=== PATIENT | male | born 1980 | race Caucasian/White ===

== ENCOUNTER 2016-10-23 14:34 | Inpatient (IN) | payer MEDICARE ==
[~2016-10-23] VITALS: Ht 182.9 cm; Wt 77.2 kg
[2016-10-23 14:40] VITALS: BP 131/80; PULSE 120; RESP 18; O2SAT 96
--- NOTE | 2016-10-23 15:10 | ED.REPORT ---
HPI-Psychiatric Illness Date of Service Oct 23, 2016 ED Provider: Dayne Velazquez DO Pt is a 36 year old male with a history of schizoaffective disorder, anxiety, and hallucinations who presents to the ED complaining of auditory hallucinations. He c/o associated visual hallucinations, paranoia, and anxiety. He denies alcohol and drug use. The pt denies suicidal ideation and homicidal ideation. Pt was previously in [facility] in [place] for auditory and visual hallucinations, but has been experiencing increasing hallucinations due to lack of medication coverage by his insurance company. He was taking 15 mg of Zyprexa 3x a day for 3 weeks. Pt is currently homeless and has been seeing shadows. Pt reports that he "wants to get a clear head to figure out the next step." He moved to [place] from [place] due to a "psychotic breakdown" and to reconnect with family, reporting that he gets impulsive when he experiences similar symptoms with thoughts [place] Nursing Notes Stated Complaint: PSYCHOSIS Chief Complaint: Psychiatric Complaint Nursing Notes Reviewed: Yes Allergies: Uncoded Allergies: SALMON (Allergy, Unknown, 10/23/16) Scheduled Albuterol Sulfate (Ventolin HFA Inhaler) 200 Puff/18 Gm Inhaler 1 PUFF INH Q4 Divalproex ER (Divalproex ER) 500 Mg Tab.er.24h 500 MG PO BID *DAILY DOSING ONLY* Swallowed whole without chewing to avoid local irritation of the mouth and throat. Sertraline HCl (Sertraline) 20 Mg/1 Ml Oral.conc 150 MG PO DAILY Scheduled PRN Fluticasone Propionate (Flovent HFA 110 mcg) 12 Gm Aer.w.adap 1 PUFF IH BID PRN PRN For Shortness of Breath Quetiapine Fumarate (Seroquel) 100 Mg Tablet 100 MG PO BID PRN PRN psychosis Trazodone (Trazodone) 100 Mg Tablet 100 MG PO HS PRN PRN Insomnia General Time Seen by MD: 15:08 Chief Complaint Hallucinations, auditory Hx Obtained From: Patient Arrived By: Walk-in Onset Occurred: Onset unknown Symptom Duration: Since onset Severity: Current: No pain currently Severity: Maximum: No pain Recent Healthcare: No recent doctor visit, No recent hospitalization Similar Sx Previous: Yes Risk-Psychiatric Illness Suicide Risk Stratification Suicide Risk Factors - Adult: : Prior psych admissionNo: Alcohol use RF Statements: Risk factors reviewed Past Medical History Past Medical History Schizoaffective disorder Anxiety Reports: Asthma Past Surgical History Denies Smoking History Unknown if Ever Smoker Social History Alcohol Use: Denies alcohol use Drug Use: Denies drug use Ambulatory Status Independent Review of Systems + Paranoia Psychiatric: Reports: Anxiety, Hallucinations, auditory, Hallucinations, visual , Denies: Homicidal ideation, Suicidal ideation Complete sys rev & neg: except as marked. Physical Exam Initial Vital Signs Vital Signs (First) Date Time Temp Pulse Resp B/P Pulse Ox O2 Delivery O2 Flow Rate FiO2 10/23/16 14:40 36.7 120 18 131/80 96 Room Air Initial VS: Reviewed ENT: Mucous membranes moist, Conjunctiva normal, No scleral icterus Neck: Supple, Full range of motion Respiratory: Breath sounds normal, Clear to auscultation, No respiratory distress Cardiovascular: Regular rate & rhythm, Heart sounds normal, Intact distal pulses Abdomen / GI: Soft, Non-tender Extremities: Vascular intact, Neuro intact Skin: Warm, Dry, No cyanosis General/Constitutional: Awake, Alert, Cooperative He is extremely anxious and tremulous with poor eye contact. Neurologic: Oriented X3, Speech NL Psychiatric: Affect NL, Mood NL, Not suicidal, Not homicidal Interpretation & Diagnostics Lab Results Interpretation Result Diagram: 10/23/16 1615 10/23/16 1615 Test 10/23/16 16:15 10/23/16 17:03 White Blood Count 8.9th/mm3 (3.8-10.1) Red Blood Count 5.12mil/mm3 (4.40-5.80) Hemoglobin 15.3g/dL (13.8-17.2) Hematocrit 45.6% (41.0-50.0) Mean Corpuscular Volume 89.1fL (81-100) Mean Corpuscular Hemoglobin 29.9pg (27.0-35.0) Mean Corpuscular Hemoglobin Concent 33.6% (32.0-37.0) Red Cell Distribution Width 14.4% (12.3-15.4) Platelet Count 311bil/L (150-400) Neutrophils (%) (Auto) 59.8% (40-74) Lymphocytes (%) (Auto) 26.5% (14-46) Monocytes (%) (Auto) 10.3% (4-12) Eosinophils (%) (Auto) 2.5% (0-5) Basophils (%) (Auto) 0.7% (0-3) Sodium Level 143mEq/L (134-144) Potassium Level 4.0mEq/L (3.5-5.2) Chloride Level 103mEq/L (97-108) Carbon Dioxide Level 27mmol/L (18-29) Blood Urea Nitrogen 23mg/dL (6-20) Creatinine 0.91mg/dL (0.76-1.27) Estimat Glomerular Filtration Rate 101mL/min (>59) Glucose Level 89mg/dL (60-99) Calcium Level 9.4mg/dL (8.5-10.1) Total Bilirubin 0.4mg/dL (0.0-1.2) Aspartate Amino Transf (AST/SGOT) 74U/L (0-50) Alanine Aminotransferase (ALT/SGPT) 34U/L (0-44) Alkaline Phosphatase 108U/L (25-150) Total Protein 7.3g/dL (6.4-8.4) Albumin 4.2g/dL (3.4-5.0) Thyroid Stimulating Hormone (TSH) 1.270uIU/mL (0.450-4.500) Hold Ackerman Top Tube Received (Received) Re-Eval/Medical Decision Med Decision/Clinical Course 36-year-old male with a history of schizoaffective disorder presents with visual and auditory hallucinations. He is currently homeless and is having difficulty obtaining his medications due to insurance problems. He has been hospitalized twice in the patient in the past month or so. He denies suicidal or homicidal ideation. He appears very anxious and is unable to manage his psychosis or get medications. Given his unstable medical condition he will be admitted for treatment and evaluation and hopefully some resources to obtain his medications. He was treated with 2 doses of Haldol 5 mg orally in the ER with some mild improvement of his symptoms. Source of Hx: Old records Re-Evaluation/Progress : Time of Eval: 20:23 )( Re-Eval Psychiatric: No suicidal ideation, No homicidal ideation Re-Evaluation/Progress Note: Pt rechecked. Informed pt of plan for admission. Pt understands and agrees with plan for admission. All questions addressed. Consultation : Referral / Consult Name: Khalif Mikeorquidea Long DO Consulted With: Hospitalist Call Returned at: 20:23 Air Brake Man: Will see patient, Agrees with eval, Agrees with plan, Accepts admit Counseled Regarding: Diagnosis, Lab results, Need for admission Discharge & Departure Impression: Primary Impression: Psychosis Psychosis type: schizoaffective disorder Schizoaffective disorder type: other Qualified Code: F25.8 - Other schizoaffective disorders Additional Impressions: Schizoaffective disorder Schizoaffective disorder type: unspecified Qualified Code: F25.9 - Schizoaffective disorder, unspecified Hallucination, visual Auditory hallucinations Disposition: ADMITTED TO HOSPITAL Discharge Condition All VS Reviewed: Yes Condition: Stable Referrals: [facility] Scribe Attestation Portions of this note were transcribed by Shira Elias. I, Dr. Velazquez personally performed the history, physical exam and medical decision-making; I reviewed and confirmed the accuracy of the information in the transcribed note. Signed by: Gianfranco Teran, 10/23/16 and 17:30. copies to: [facility] Dayne Velazquez DO Oct 23, 2016 15:10 Shira Steven Oct 23, 2016 16:01
[2016-10-23 16:27] LABS: BASOPHILS % (AUTO) 0.7 % (0-3); EOSINOPHILS % (AUTO) 2.5 % (0-5); MONOCYTES % (AUTO) 10.3 % (4-12); Mean Corpuscular Hemoglobin 29.9 pg (27.0-35.0); Mean Corpuscular Volume 89.1 fL (81-100); NEUTROPHILS % (AUTO) 59.8 % (40-74); Platelet Count 311 bil/L (150-400)
[2016-10-23 21:40] VITALS: BP 128/77; PULSE 107; RESP 18; O2SAT 98
[2016-10-24 00:32] VITALS: BP 122/80; PULSE 94; RESP 18; O2SAT 98
[2016-10-24] MEDS ORDERED: Magnesium Hydroxide 10 mL Oral Concentration PO PRN (00:40)
[2016-10-24] MEDS ORDERED: Alum-Mag Hydrox-Simeth 30 mL Suspension PO PRN (00:40)
[2016-10-24] MEDS ORDERED: Benzocaine-Menthol Lozenge 2/Pkg PO PRN (00:40)
--- NOTE | 2016-10-24 03:25 | NUR ---
0045 Nursing note: admission 36 year old male admitted voluntarily from [facility] ER. Patient self presented to ED due to worsening paranoid and anxiety. Patient reported he was recently discharged from [facility] about 4 days ago. Patient had been prescribed Zyprexa on discharge,but pharmacy could not fill his prescription due to his insurance coverage. Patient reports he started feeling increasing paranoia that people were going to hurt him. Patient stayed in [place] last 3 days, but got impulsive and just started to walk. Patient walked all the way to the hospital as he did not feel safe and requesting admission as he feels he will become more paranoid if not in hospital. Patient appears distracted on admission, but states feeling less anxious since medications given in ER (Haldol) Patient is cooperative with admission, denies SI, HI AH. Patient endorsed depression, but contracts no harm. Patient agreeable to po Zyprexa ordered on admission, then retired to bed. Addendum: 10/24/16 at 0555 by MAR PEÑALOZA RN 0600: Patient appears to be sleeping on subsequent safety checks during the night.
[2016-10-24] MEDS ORDERED: QUET100T PO (04:05)
[2016-10-24] MEDS ORDERED: DIVA500T14 PO (04:05)
[2016-10-24] MEDS ORDERED: TRAZ-118 PO (04:05)
[2016-10-24] MEDS ORDERED: ALBU18HF INH (04:05)
[2016-10-24] MEDS ORDERED: FLUT12AE8 IH (04:05)
[2016-10-24] MEDS ORDERED: SERT20OR6 PO (04:05)
[2016-10-24] MEDS ORDERED: Albuterol 2.5 mg/3 mL Inhalation Solution NEB SCH (16:00)
[2016-10-24] MEDS ORDERED: Albuterol 2.5 mg/3 mL Inhalation Solution NEB PRN (16:25)
--- NOTE | 2016-10-24 16:38 | HP ---
[address] [address] HISTORY AND PHYSICAL PATIENT: LUIS FELIPE GIRARD : 1980 MR#: [id number] ADMIT: 10/24/2016 JOB ID: [id number] IDENTIFICATION: The patient is a 36-year-old, single white male. He is currently homeless. He has been on SSDI for psychotic symptoms since 2011. He initially left [place] in February 2016, traveling first to [place] and then to [place]. He spent three weeks on the inpatient unit at [facility] before being discharged four days ago and traveling to [place]. REASON FOR ADMISSION: Client walked from [place] to [place] after having increased symptoms of paranoia, auditory hallucinations and visual hallucinations. HISTORY OF PRESENT ILLNESS: I met with the patient for a 60-minute evaluation and reviewed course and records kept by [facility]. Client is presenting for treatment of increased symptoms of psychosis in the forms of paranoia, auditory and visual hallucinations. The voices are telling him that bad things are happening to others because of him. He gives a history of psychotic symptoms starting in 2011 after a significant period of methamphetamine IV. He states that he has symptoms of diana with distractibility, racing thoughts and inability to sleep. He stated he was discharged from [facility] on a combination of Depakote, Zyprexa, and Zoloft. However, when he went to get his Zyprexa prescription they stated that he had already had this filled and he has been off Zyprexa for the past four days. Without the medication, he has not slept for the past two days and is having extreme symptoms recur of paranoia and auditory hallucinations. He states he does well when he is in regular treatment, taking his medications, and has regular housing and social support. He states he does quite poorly if he does anything such as marijuana or alcohol. He states he is not using any other street drugs, although his urine tox was positive for opiates. Client denied suicidal ideation, plan, or intent. He denied previous history of violence or legal incarceration. He states he is isolated from his family and is hoping to re-create himself here in the [place] area. PAST PSYCHIATRIC HISTORY/MEDICATIONS: 1. Depakote ER 500 b.i.d. 2. Zoloft 150 daily. 3. Zyprexa 15 mg b.i.d., per patient report. ALLERGIES: CATS. ILLNESSES: Asthma. OTHER MEDICATIONS: Client also takes in medicines: 1. Albuterol metered-dose inhaler q.4 h. p.r.n. 2. Flovent metered-dose inhaler b.i.d. FAMILY MEDICAL HISTORY: Mother of unknown causes in 2009. He has a father who is still alive and a younger sister. PAST PSYCHIATRIC HISTORY: Client reports being diagnosed with schizophrenia and bipolar in 2011. He states he has been hospitalized 8-10 times in [place]. He states he has been in the [facility] for 28 days. He was recently at [facility] for three weeks before being discharged. He has been out for the past four days. PSYCHOSOCIAL HISTORY: Client was born in [place] and moved to [place] when he was 9 years old, living in [facility]. He dropped out of high school in his senior year and has been doing general internal medicine physician. He states he enjoys drawing, writing, and writing stories for recreation. History of trauma: Client denies lethality. Client denies active use of marijuana, alcohol, or meth. He has a history of severe IV meth abuse. Lethality: Client denies suicidal or homicidal ideation. He had one suicide attempt at age 29 where he took pills, hoping to . He blacked out and woke up in the intensive care unit. He could not remember what kind of pills he took. RELATIONSHIP HISTORY: Single. He has one daughter, age 16, who is in . CHEONDOISM: Restorationist. LEGAL HISTORY: Two years ago, he got a driving with suspended license. PHYSICAL EXAM: Well hydrated, well-developed, no acute distress. Physical exam reviewed from ED and essentially normal. Vital signs within normal limits. LABS: CBC normal. Liver, electrolytes, thyroid normal except for BUN and AST elevated. UDS positive for opiates. MENTAL STATUS EXAM: Client neatly dressed, calm, and pleasant. He had poor eye contact. His behavior was somewhat withdrawn and lethargic. His attitude was cooperative and pleasant. Speech normal rate and rhythm. Mood: Dysthymic. Affect: Congruent, flat, restricted. Thought process: Client was able to relate a very coherent history, logical, goal oriented. Thought content: Significant for paranoid thoughts as well as auditory hallucinations. He is hearing voices telling him, "You are the reason bad things are happening to other people." He denied suicidal ideation, plan, or intent. Client alert and oriented to person, place, and date. Immediate short- and long-term memory intact. Attention and concentration mildly impaired. Insight and judgment appropriate. Impulse control: Highly contained. Reality testing markedly impaired. Competence to handle current stressors: Is currently being overwhelmed. IMPRESSION: The patient is a 36-year-old, white male, who is been struggling with symptoms of diana and psychosis since 2011. He has been hospitalized multiple times in [place], as well as 28 days in the [facility] He recently moved here to the [facility] from [place] via [place] approximately four weeks ago. He spent three weeks being stabilized at [facility]. However, after discharge, his insurance would not let him worm picker his Zyprexa script. As a result, he has been wandering for the past four days without medications and has had increased symptoms of diana with no sleep for two days and now has retriggered paranoia and auditory hallucinations. For unclear reasons, urine drug tox is positive for opiates and he had a marked elevation of BUN and AST from his labs. He is currently homeless with very little psychosocial support. DIAGNOSIS: [place] I. 1. Psychosis, unspecified. 2. Rule out substance-induced psychosis. 3. Rule out schizoaffective disorder. [place] II. Defer. [place] III. Asthma. [place] IV. Moderate. [place] V. Current Global Assessment of Functioning equal to 35. PLAN: Recommend client be admitted to our unit and be provided with a high degree of safety through the structure and active adult engagement he will receive here. We will have him participate in one-to-one unit and group activities, focused on improving coping skills and reality-based thinking. We will restart medications, Depakote ER 500 twice a day, Zoloft 150 daily, and restart Zyprexa at 10 mg twice a day. Client is a voluntary patient and anticipate 3-5 day stay. We will recheck BUN and AST in the morning.
[2016-10-24 16:51] VITALS: PULSE 96; RESP 16; O2SAT 93
--- NOTE | 2016-10-24 17:33 | NUR ---
[facility] Day Shift Pt maintained behavioral control throughout the shift. Pt affect appears mostly flat, somewhat brighter when engaged with staff or peers. Pt mostly isolative throughout the shift, spending most of the shift resting or sleeping in his room. Pt is appropriate with staff and peers when active on the shift, but is not social. Pt did not attend group activities throughout the shift. Pt attended all meals and ate approx 100% of all meals.
--- NOTE | 2016-10-24 18:10 | NUR ---
NURS Note [id number] Mood: "I'm just really tired." Endorses depression /10; anxiety, 10/16. Affect: Well-modulated. Behavior: Pt sleeping in room most of shift, up for meals. Thought Content/Process: "I'm hearing voices but they are more muffled than before. I see shadows but they aren't distressing." Endorses AH, VH. Denies SI, HI. PRN/NURS Notes: B 100%, L 100%, D 100%. PRN albuterol NEB administered by RT.
[2016-10-24] MEDS: Fluticasone 100 mCg Inhaler INHALATION SCH (20:35)
[2016-10-24] MEDS: Divalproex (QD) 500 mg ER24 Tablet PO SCH (20:35)
--- NOTE | 2016-10-25 04:49 | NUR ---
nurse prog note: pt. slept well through the night.
[2016-10-25] MEDS: Divalproex (QD) 500 mg ER24 Tablet PO SCH ×2 (08:48→20:57)
[2016-10-25] MEDS: Fluticasone 100 mCg Inhaler INHALATION SCH ×2 (08:48→20:56)
[2016-10-25 11:14] VITALS: BP 113/72; PULSE 82; RESP 16
--- NOTE | 2016-10-25 13:39 | PCM.PNPSY ---
Subjective Date of Service Oct 25, 2016 Subjective I spent 30 minutes both reviewing treatment plan with our clinical team, interviewing the patient and providing supportive/educational psychotherapy. I spent more than 50% of the time counseling the patient. I reviewed the treatment plan with the him and discussed options available including the potential risks, benefits and side effects. Nestor reports a slight improvement in thought organization and mood stability. Staff reports that he has been active and participating well in one-to-one unit and group activities. He slept 10 hours and denies depression or manic symptoms review. He continues to complain of auditory hallucinations and general difficulty with thought organization. He denies medication side effects. He was able to identify his medications and what they were used to treat. Current Medications Current Medications Albuterol 2.5 mg Q4H PRN NEB Last administered on 10/24/16 16:50; Admin Dose 2.5 MG; Start 10/24/16 at 16:25 Divalproex Sodium 500 mg BID PO Last administered on 10/25/16 08:48; Admin Dose 500 MG; Start 10/24/16 at 20:30 Fluticasone Propionate 1 puff BID INHALATION Last administered on 10/25/16 08: 48; Admin Dose 1 PUFF; Start 10/24/16 at 20:30 Haloperidol 5 mg ONCE ONCE PO Last administered on 10/23/16 16:28; Admin Dose 5 MG; Start 10/23/16 at 16:00; Stop 10/23/16 at 16:01; Status DC Haloperidol 5 mg ONCE ONCE PO Last administered on 10/23/16 19:39; Admin Dose 5 MG; Start 10/23/16 at 18:45; Stop 10/23/16 at 18:46; Status DC Olanzapine 10 mg BID PO Last administered on 10/25/16 08:48; Admin Dose 10 MG; Start 10/24/16 at 20:30 Olanzapine 10 mg HS ONCE PO Last administered on 10/24/16 01:01; Admin Dose 10 MG; Start 10/24/16 at 00:40; Stop 10/24/16 at 00:41; Status DC Sertraline HCl 50 mg DAILY PO Last administered on 10/25/16 08:48; Admin Dose 50 MG; Start 10/24/16 at 16:01 Trazodone HCl 100 mg HS PRN PO Last administered on 6/18/17at 20:37; Admin Dose 100 MG; Start 10/24/16 at 15:50 Mental Status Exam Vital Signs Vital Signs Date Time Temp Pulse Resp B/P Pulse Ox O2 Delivery O2 Flow Rate FiO2 10/25/16 11:14 36.8 82 16 113/72 Appearance: Neat/well groomed Attitude: Pleasant, Cooperative Behavior: No unusual behavior Mood: Dysthymic Thought Process/Associations: Logical/Sequential, Goal Directed Speech Production: Normal Speech Rate: Normal Speech Articulation: Normal Thought Content: Appropriate Danger to Self/Suicidal Ideati: None Danger to Others: None Delusions: Paranoid (Endorses) Hallucinations: Auditory (Endorses) Consciousness: Alert Orientation: Person, Place, Date, Situation Memory: Grossly Intact Estimate Intellectual Function: Average Basis for IQ estimate: Awareness current events Attention/Concentration & Cogn: Grossly Intact Cognitive Testing Method: Abstract Reasoning during interview, Proverb interpretation, Serial computations Insight: Good Judgement: Limited Result Diagram: 10/23/16 1615 10/23/16 1615 Mental Health Plan The patient is a 36-year-old, white male, who is been struggling with symptoms of diana and psychosis since 2011. He has been hospitalized multiple times in [place], as well as 28 days in the [facility]. He recently moved here to the [facility] from [place] via [place] approximately four weeks ago. He spent three weeks being stabilized at [facility]. However, after discharge, his insurance would not let him picker feeder his Zyprexa script. As a result, he has been wandering for the past four days without medications and has had increased symptoms of diana with no sleep for two days and now has retriggered paranoia and auditory hallucinations. He is currently homeless with very little psychosocial support. This morning Nestor reported an improvement in thought organization. We problem solved different Psychosocial issues he struggling with an attempted develop a safety and treatment plan for after discharge. If he continues to improve would anticipate discharge in 2-3 days. [place] I. 1. Psychosis, unspecified. 2. Rule out substance-induced psychosis. 3. Rule out schizoaffective disorder. [place] II. Defer. [place] III. Asthma. [place] IV. Moderate. [place] V. Current Global Assessment of Functioning equal to 35. Treatments Patient is being provided with a high degree of safety through our unit structure and active adult engagement provided by our mental health professionals, mental health technicians, psychiatric nurses and myself. We are focusing on developing improved coping skills and identifying stressors that may have led to current episode. We will attempt to: * Integrate into therapeutic groups, milieu and individual therapy. * Maintain in a closely monitored and structured unit * Provide low-stimulation environment * Obtain collateral data to assist in treatment planning * Assess degree of lability of affect and impulse control * Complete safety plan * Decrease frequency of relapse and need for re-hospitalization * Establish a consistent sleep pattern * Medication effective in stabilization of mood and/or thought process * Reduce the risk of imminent harm to self and/or others by providing a safe environment * Tolerates medication without side effects Patient will be on the following psychiatric medications: Depakote ER 500 twice a day Zoloft 150 daily Zyprexa 10 mg twice a day Labs:recheck BUN and AST in a.m. Education: Educate patient about recreational drug use as an etiology Educate about metabolic etiologies related to obesity Patient's legal status Voluntary Anticipated number of hospital days to achieve above goals: 5 Disposition: Homeless correction Jim Moran MD Oct 25, 2016 13:39
--- NOTE | 2016-10-25 14:19 | NUR ---
NURS Note [id number] Mood: "I'm feeling pretty optimistic; but feel a little depressed about being in the hospital again." Denies depression. Endorses mild situational depression and anxiety. Affect: Well-modulated. 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 There were about 11 people at the time. I loved it." Linear, logical. Endorses AH. Denies VH. Denies SI, HI. Behavior: Appropriate and pleasant with peers and staff. Spent much of shift in room, resting, sleeping, and writing. PRN/NURS Notes: Pt denies respiratory distress, wheezing, or chest tightness. Continue to monitor respiratory status, call RT for NEB albuterol treatment as needed for asthma symptoms.
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
--- NOTE | 2016-10-25 16:24 | NUR ---
Acls Nurse/Counselor S:"I'm here for my psychosis." O: Patient did not express any SI or HI, but stated that he hears voices telling him bad things, as well as to hurt others and that everything is his fault. He did not express any visual hallucinations, and rated his depression at a 2 and his anxiety at a 2. A: Patient was cooperative but quiet. He stated he has been hospitalized in [place] and [facility], and stated he was also homeless. He does not have any providers in the area. He secluded himself to his room for most of the day and only came out for meals. He declined group, and has not participated in any other activities. P: Follow care plan and coordinate with outpatient providers.
--- NOTE | 2016-10-25 19:14 | NUR ---
Obs Dayshift Pt is out in the milieu for meals, and the Dog group in the morning. Pt engages very little w/ staff and peers. Quiet, polite, little requests. Pt has good ADL's, Good meals
--- NOTE | 2016-10-25 23:00 | NUR ---
NURSING NOTE [id number] Mood: "starting to feel better" Affect: quiet, polite, cooperative Behavior: pt. mostly isolating to room this shift but does come out periodically and interacts sparingly w/peers. He took a shower. He is med compliant. Thought processes: pt. endorses AH; but reports "they're getting more quiet and I'm mostly able to ignore them now." Denies VH. Reports his anxiety is improving and feels he will be ready to discharge soon. Denies SI.
--- NOTE | 2016-10-26 05:13 | NUR ---
Nursing Shift Combination Building Inspector 11pm to 7am Pt asleep at start of shift and remained asleep for the duration of the night. Pt monitored q 15 minutes for safety location and accountability
[2016-10-26] MEDS: Fluticasone 100 mCg Inhaler INHALATION SCH ×2 (08:29→21:10)
[2016-10-26] MEDS: Divalproex (QD) 500 mg ER24 Tablet PO SCH ×2 (08:29→21:11)
[2016-10-26 12:59] VITALS: BP 119/68; PULSE 97; RESP 16
--- NOTE | 2016-10-26 14:33 | NUR ---
Nursing day note- "I'm feeling pretty good today." Up in dining room for meals, otherwise he has been in his room. Says that he feels rested and his appetite is good. He also said that the "auditory hallucinations", were less and that he recognizes the increase in his heart rate and anxiety level when he has them. He also talked about plans for discharge tomorrow, and feeling optimistic about that.
--- NOTE | 2016-10-26 15:13 | PCM.PNPSY ---
Subjective Date of Service Oct 26, 2016 Subjective I spent 30 minutes both reviewing treatment plan with our clinical team, interviewing the patient and providing supportive/educational psychotherapy. I spent more than 50% of the time counseling the patient. I reviewed the treatment plan with the him and discussed options available including the potential risks, benefits and side effects. Nestor reports a marked improvement in thought organization and mood stability. Staff reports that he has been active and participating well in one-to-one unit and group activities. He slept 9 hours and denies depression or manic symptoms review. He continues to complain of auditory hallucinations and general difficulty with thought organization. He denies medication side effects. He was able to identify his medications and what they were used to treat. Current Medications Current Medications Albuterol 2.5 mg Q4H PRN NEB Last administered on 10/24/16 16:50; Admin Dose 2.5 MG; Start 10/24/16 at 16:25 Divalproex Sodium 500 mg BID PO Last administered on 10/26/16 08:29; Admin Dose 500 MG; Start 10/24/16 at 20:30 Fluticasone Propionate 1 puff BID INHALATION Last administered on 10/26/16 08: 29; Admin Dose 1 PUFF; Start 10/24/16 at 20:30 Olanzapine 10 mg BID PO Last administered on 10/26/16 08:29; Admin Dose 10 MG; Start 10/24/16 at 20:30 Sertraline HCl 50 mg DAILY PO Last administered on 10/26/16 08:30; Admin Dose 50 MG; Start 10/24/16 at 16:01 Trazodone HCl 100 mg HS PRN PO Last administered on 10/25/16 21:32; Admin Dose 100 MG; Start 10/24/16 at 15:50 Mental Status Exam Vital Signs Vital Signs Date Time Temp Pulse Resp B/P Pulse Ox O2 Delivery O2 Flow Rate FiO2 10/26/16 12:59 37.1 97 16 119/68 Appearance: Neat/well groomed Attitude: Pleasant, Cooperative Behavior: No unusual behavior Mood: Euthymic Thought Process/Associations: Logical/Sequential, Goal Directed Speech Production: Normal Speech Rate: Normal Speech Articulation: Normal Thought Content: Appropriate Danger to Self/Suicidal Ideati: None Danger to Others: None Delusions: Paranoid (Endorses) Hallucinations: Auditory (Endorses) Consciousness: Alert Orientation: Person, Place, Date, Situation Memory: Grossly Intact Estimate Intellectual Function: Average Basis for IQ estimate: Awareness current events Attention/Concentration & Cogn: Grossly Intact Cognitive Testing Method: Abstract Reasoning during interview, Proverb interpretation, Serial computations Insight: Good Judgement: Good Result Diagram: 10/23/16 1615 10/23/16 1615 Mental Health Plan The patient is a 36-year-old, white male, who is been struggling with symptoms of diana and psychosis since 2011. He has been hospitalized multiple times in [place], as well as 28 days in the [facility]. He recently moved here to the [facility] from [place] via [place] approximately four weeks ago. He spent three weeks being stabilized at [facility]. However, after discharge, his insurance would not let him cotton picker his Zyprexa script. As a result, he has been wandering for the past four days without medications and has had increased symptoms of diana with no sleep for two days and now has retriggered paranoia and auditory hallucinations. He is currently homeless with very little psychosocial support. This morning Nestor reported an improvement in thought organization. We problem solved different Psychosocial issues he struggling with an attempted develop a safety and treatment plan for after discharge. Nestor has had a significant recovery. If he continues to have normalized thought Process and mood We will discharge in the morning. [place] I. 1. Psychosis, unspecified. 2. Rule out substance-induced psychosis. 3. Rule out schizoaffective disorder. [place] II. Defer. [place] III. Asthma. [place] IV. Moderate. [place] V. Current Global Assessment of Functioning equal to 40. Treatments Patient is being provided with a high degree of safety through our unit structure and active adult engagement provided by our mental health professionals, mental health technicians, psychiatric nurses and myself. We are focusing on developing improved coping skills and identifying stressors that may have led to current episode. We will attempt to: * Integrate into therapeutic groups, milieu and individual therapy. * Maintain in a closely monitored and structured unit * Provide low-stimulation environment * Obtain collateral data to assist in treatment planning * Assess degree of lability of affect and impulse control * Complete safety plan * Decrease frequency of relapse and need for re-hospitalization * Establish a consistent sleep pattern * Medication effective in stabilization of mood and/or thought process * Reduce the risk of imminent harm to self and/or others by providing a safe environment * Tolerates medication without side effects Patient will be on the following psychiatric medications: Depakote ER 500 twice a day Zoloft 150 daily Zyprexa 10 mg twice a day Education: Educate patient about recreational drug use as an etiology Educate about metabolic etiologies related to obesity Patient's legal status Voluntary Anticipated number of additional hospital days to achieve above goals: 1 Disposition: Homeless jail Jim Moran MD Oct 26, 2016 15:12
--- NOTE | 2016-10-26 15:27 | NUR ---
Obs Dayshift Pt remains in his room during most free times. Pt is out in the milieu during meals, snacks and does attend groups. Pt is calm, co-operative, polite, minimal engaging w/ peers. Pt worked on and completed his safety plan and early warning sings in prep for D/C this week. Pt has better eye contact, calm. Pt continues w/ a sad affect but slightly better than the past few days. Good ADL's, Good meals
--- NOTE | 2016-10-26 16:00 | NUR ---
Physician Office Specialist/Counselor S:" I'm doing fine." O: Patient did not report any SI or HI, no depression or anxiety but does report auditory hallucinations. A: Patient has been secluded to his room and has only come out during meal times. He speaks very quietly and has a flat affect. He is calm but very sad. Patient is scheduled to be discharged tomorrow, 10/27/16 P:Follow care plan and coordinate with outpatient providers.
[2016-10-26] MEDS: LORazepam 1 mg Tablet PO PRN ×2 (16:49→21:15)
--- NOTE | 2016-10-26 22:00 | NUR ---
NURSING NOTE [id number] Mood: "a little anxious" Affect: anxious, polite, quiet Behavior: pt. continues to mostly isolate to his room, in bed, but did come out to ask questions of staff re: his medications and discharge information. Pt. is med compliant. Thought processes: pt. endorses more anxiety this evening than yesterday. Reports the voices "are a bit stronger" than earlier today. Declined offers of PRN Seroquel as he stated it has not helped him previously. Requested PRN Ativan 1 mg @ 16:49 and at HS as he explained that when his anxiety is reduced his voices become less intense. Rated anxiety level 7/10. Denied SI. Requested PRN Trazodone 100 mg @ 22:30.
--- NOTE | 2016-10-27 06:56 | NUR ---
Sleep Adequate sleep through the night with no noted distress or awakening per protocol checks. Total sleep 7+ hours.
[2016-10-27] MEDS: Divalproex (QD) 500 mg ER24 Tablet PO SCH (08:01)
[2016-10-27] MEDS: Fluticasone 100 mCg Inhaler INHALATION SCH (08:02)
[2016-10-27] MEDS: LORazepam 1 mg Tablet PO PRN ×2 (08:24→12:59)
[2016-10-27] MEDS ORDERED: RISP3TAB19 PO (13:19)
[2016-10-27] MEDS ORDERED: ALBU18HF INH (13:20)
[2016-10-27] MEDS ORDERED: DIVA500T14 PO (13:21)
[2016-10-27] MEDS ORDERED: SERT50TA9 PO (13:21)
--- NOTE | 2016-10-27 13:22 | PCM.DIMED ---
Discharge Instructions Date of Service Oct 27, 2016 Dates of Hospitalization Oct 24, 2016 at 00:18 Discharge Diagnosis Discharge Diagnosis [place] I. 1. Psychosis, unspecified. 2. Rule out substance-induced psychosis. 3. Rule out schizoaffective disorder. [place] II. Defer. [place] III. Asthma. [place] IV. Moderate. [place] V. Current Global Assessment of Functioning equal to 50 Diet Discharge Diet: No restrictions Activity Discharge Activity: No restrictions Patient Instructions Patient Instructions I Strongly encouraged patient to follow up with outpatient care: 1-Recommended patient takes medication as prescribed and not alter this unless under the direct care of a provider. 2-Recommend client refrain from recreational drugs and alcohol while taking psychiatric medications. 3-Recommend client start a 12 step program to deal with issues of addiction. 4-Recommend patient attempt to find a therapist or group to deal with impulse control and interpersonal relationship conflicts Follow-up plan Patient to follow-up with [facility] for an intake in [place]. Client given bus ticket to the [facility] in [place]. Follow-up with PCP in: 2 weeks Jim Moran MD Oct 27, 2016 13:22
[2016-10-27 13:31] VITALS: BP 122/78; PULSE 113; RESP 16
--- NOTE | 2016-10-27 13:35 | NUR ---
Senior Water Resources Engineer/Counselor S:"I'd like to go to [facility]." O: Patient did not report any SI or HI. States he is still dealing with the AH but no VH. He rated his anxiety at a 0, and depression was "low." A: Patient was discharged at 1330. He will be transported via taxi to [facility], and will from there take a bus to [place]. He will stay at [facility] in [place] and will receive follow up mental health services through [facility]. He was provided with a bus ticket, directions and discharge instructions. Patient expressed a desire to move to [facility] before discharge. P: Follow discharge instructions and use safety plan. Attend 's appts.
--- NOTE | 2016-10-27 14:05 | DIS ---
[address] [address] DISCHARGE SUMMARY PATIENT: LUIS FELIPE GIRARD : 1980 MR#: [id number] ADMIT: 10/24/2016 JOB ID: [id number] DIS: 10/27/2016 IDENTIFICATION: The patient is a 36-year-old, single male currently homeless and has been on SSDI for psychotic symptoms since 2011. He left from [place] to the [facility] in February 2016. He was on inpatient unit at [facility] for three weeks, four days prior to admission. REASON FOR ADMISSION: Client presented to the emergency department with paranoia, auditory hallucinations and visual hallucinations. SUMMARY OF PRESENT ILLNESS: Patient is a 36-year-old, white male, who has been struggling with symptoms of diana and psychosis since 2011. He has been hospitalized multiple times in [place], as well as 28 days in the [facility] there. He was recently in [facility] for three weeks prior to being discharged four days prior to admission here. After discharge from [facility], he could not slat pickler his Zyprexa and was off meds for four days. Began to have increased symptoms of diana and psychosis and came to the emergency department seeking stabilization and treatment. HOSPITAL COURSE: Client was admitted to our unit and was provided with a high degree of safety through the structure and active adult engagement he received here. We had him participate in one-to-one unit and group activities focused on improving reality based thinking and coming up with a treatment plan and safety plan for after discharge. He participated well in all the above activities. He was restarted on medications, Depakote, Zoloft Zyprexa. He had no side effects to these medications and had gradual and steady improvement over the three days he was here. Today he is requesting discharge and has a reasonable safety plan in place. MENTAL STATUS: Neatly dressed, calm, pleasant, good eye contact. Attitude was cooperative. Mood euthymic. Affect congruent. Normal intensity. Thought process, client is able to relate a coherent history. No signs of psychosis. Thought content: Significant for themes of future planning, how to take care of himself. He continues to have auditory hallucinations but not of a command nature. Insight and judgment appropriate. Impulse control highly contained. Reality testing intact. Competence to handle current stressors appears appropriate. DISCHARGE DIAGNOSES: AXIS I: 1. Psychosis unspecified. 2. Rule out substance induced psychosis. 3. Rule out schizoaffective disorder. AXIS II: Deferred. AXIS III: Asthma. AXIS IV: Moderate. AXIS V: Current Global Assessment of Functioning equal to 50. DISCHARGE PLAN: Client to follow up with [facility] in [place]. [facility] [place]. DISCHARGE MEDICATIONS: The client requested change from Zyprexa to Risperdal so that he would not have further chance of losing meds this time. He also requested a decrease in Zoloft to 50 mg per day to minimize side effects. Client will be discharged on Depakote ER 500 twice a day, Risperdal 3 mg twice a day, Zoloft 50 mg daily. He will also be continued on albuterol metered-dose inhaler and Flovent asthma medications one puff b.i.d. ACTIVITY AND DIET: Recommend client refrain from recreational drugs and alcohol while taking psychiatric medications. Recommend he not change medications unless under the supervision of a physician. CONDITION ON DISCHARGE: Good. PROGNOSIS: Poor. Client has a severe history of drug and alcohol abuse and unless he is in a 12-step program or similar devoted practice, I believe he will continue to struggle with substance abuse, psychosis and depression.
--- NOTE | 2016-10-27 18:51 | NUR ---
NURS DISCHARGE NOTE Patient cooperative with discharge process. Acknowledges understanding of d/c instructions and has a copy with them upon leaving unit at 1345. Belongings accounted for and with patient. Prescriptions faxed to patients pharmacy. Patient denies harmful thoughts and distressing hallucinations at this time.
== END 2016-10-27 13:45 | disposition home or self-care (01) | DRG 885 ==
LOC: SED 14:34 → MHC 10-24 00:18
PROVIDERS: ADMIT Psychiatry & Neurology Psychiatry; ATTEND Psychiatry & Neurology Psychiatry
DX: F29 Unspecified psychosis not due to a substance or known physiological condition (principal); J45.909 Unspecified asthma, uncomplicated; Z59.0 Homelessness